=== PATIENT | male | born 1980 | race Caucasian/White ===

== ENCOUNTER 2020-07-03 02:01 | Emergency (ER) | payer OTHER ==
[~2020-07-03] VITALS: Ht 188 cm; Wt 97.5 kg
[2020-07-03 02:04] VITALS: BP 123/76
== END 2020-07-03 03:56 | disposition home or self-care (01) ==
LOC: ER 02:01
DX: T69.9XXA Effect of reduced temperature, unspecified, initial encounter (principal); F17.210 Nicotine dependence, cigarettes, uncomplicated